=== PATIENT | male | born 1995 | race Two or more races ===

== ENCOUNTER 2022-02-10 10:20 | Outpatient (CLI) | payer OTHER ==
[2022-02-10 11:13] VITALS: BP 128/78
--- NOTE | 2022-02-10 11:13 | SLEEP CARE CONSULTATION ---
Information from patient questionnaire entered by Jaelyn Minor MA. I have reviewed and concur with the information entered by Jaelyn Minor MA. This document represents the service I personally performed and the decisions made by me, Tanisha Guerra ARNP. History of Present Illness Service Date and Time: 02/10/2022 1020 Reason for Visit: New patient (ONSET 10/2020, NO PRIORS, ) Chief Complaint: reports: Insomnia, Unrefreshed sleep, Snoring, Observed pauses in breathing (per mother when younger and currently has noted), Fatigue, Frequent awakenings at night Date of Onset: 1 TO 1.5 YEARS Usual bedtime: 9 -10 PM Time it takes to fall asleep: 15-30 MINUTES Snores at night: Yes Observed to quit breathing while asleep: Yes Sleeps alone due to snoring: Yes (has in past) Number of times waking at night: 5 PLUS Reasons for waking at night: reports: Snoring, Pain, Other (unknown reasons). denies: Choking, Gasping for air Toss, Turn, or Twitch while sleeping: No Recalls having dreams: Yes Usually gets out of bed at: [id number]; dependant on work schedule; weekends until 0900 Feels refreshed in the morning: No Morning headache: No Sleepy or fatigued during the day: Yes Ever fallen asleep while driving: No Takes day naps: Yes (typically on weekends only) Dreams during day naps: Yes Prior sleep studies: No Additional HPI information: I had the pleasure of seeing GARRETT SLATER today regarding the possibility of him having a sleep disorder. His current complaints are insomnia, unrefreshed sleep, snoring, observed pauses in breathing, frequent night awakenings and fatigue. His complains about his snoring because of his snoring. He will also wake himself up snoring. They did sleep apart for a little while but currently are sharing same sleep space. He states it doesn't matter how much sleep he gets he still feels tired. He wakes up feeling tired. He states he has snored for a long time and his mother has told him he used to have pauses in breathing as a youth. His currently has noted pauses in breathing as well. He states his snoring etc has been progressively getting worse over the last year or so. He has a that he gets up to help feed during the night about midnight. - Parasomnia Symptoms Ever been unable to move upon waking from sleep: No Walks in sleep: No Talks in sleep: Yes Ever acted out dreams in sleep: Yes (not often) Ever felt weak in the knees when startled or emotional: No Bothered by creepy, crawly, restless sensations in legs: No Problems with memory or concentration: Yes (more memory issues, forgetting little things all the time) Subjective Initial [place] Sleepiness Scale score: 11 (02/18) Past Medical History Past Medical History: reports: Depression (treated in the past, not currently) Social History The patient's occupation is a [employer]. Patient is and lives in . Have you smoked in the past 12 months: No Alcohol use: Yes Alcohol amount and frequency: 1-3 every 3-6 months Caffeine use: No Family History Family history of sleep disordered breathing: Yes Family Hx Sleep Apnea: Mother: Snoring (UNCLES AND AUNTS), Sibling: Snoring Allergies and Home Medications Known drug allergies: No Drug allergies reviewed: Yes (NKDA) Home medication list reviewed: Yes (no daily medications or supplements) Review of Systems Weight gain over past 5 years: 73 lbs Cardiovascular: denies: high blood pressure Gastrointestinal: denies: heartburn Neurological: denies: headaches Ear/Nose/Throat: reports: dry mouth/throat (usually dry in the mornings; mouth breather), wisdom teeth removed. denies: tonsillectomy Endocrine: reports: sluggishness. denies: thyroid disease Immunologic: denies: allergies to food or environment Physical Exam Vital signs obtained and entered by: Mila MINOR CMA AALA Blood Pressure: 128/78 (RIGHT, PULSE 73, RESP 18, ) Heart Rate: 74 O2 Saturation: 96 (PAPER) Height: 5 ft 7 in Weight: 255 lb Body Mass Index: 39.9 BMI Classification: Obese Neck circumference: 17.5 (INCHES) Mouth and throat: narrow oropharynx Soft palate: long Hard palate: normal Uvula: normal Uvula visualization: 100% Mallampati Class I Tongue: enlarged in size with teeth moeller on lateral edges Tonsils: 2+ Neck: normal w/o lymphadenopathy or thyromegaly Heart: regular rate and rhythm Lungs: clear bilaterally Impression and Plan 1. Suspected Obstructive Sleep Apnea-Hypopnea Syndrome, as suggested by a history of loud and irregular snoring, observed cessation of breath while asleep, frequent awakening during the night, unrefreshed sleep and cognitive impairment. Narrow oropharynx and obesity are common predisposing factors for obstructive sleep apnea-hypopnea syndrome. I recommend proceeding to polysomnography to confirm the diagnosis and to assess severity. If the patient has significant sleep disordered breathing, a manual CPAP titration study will also be performed to find the optimal treatment pressure. I informed the patient of what the sleep studies involve and after some discussion, obtained agreement to proceed. The pathophysiology of obstructive sleep apnea-hypopnea syndrome was discussed with the patient and health risks of cardiovascular and cerebrovascular disease if not treated. Risks of drowsy driving discussed in detail and patient advised to avoid long distance driving and to extractor puller at the first sign of drowsiness. Patient agreed to plan. * Schedule polysomnography +- manual CPAP titration study and return in 1-2 weeks after the study to discuss results. * Avoid long distance driving or driving when feeling sleepy. * Avoid alcohol, sedative and muscle relaxant around bedtime. * Attempt to lose weight. * Review instructions provided by trained office staff on how to prepare for the sleep study. * Return for follow-up after sleep study completed. Counseling Topics: Weight loss health impact Visit Type: In Office Time Spent with Patient (minutes): 31 Provider Statement: I spent 100% of the Face to Face Visit with the patient with greater than 50% spent counseling the patient and coordination of care.
== END 2022-02-10 10:21 | disposition home or self-care (01) ==
LOC: SC 10:20
PROVIDERS: ATTEND Nurse Practitioner Family
DX: R06.83 Snoring (principal); G47.8 Other sleep disorders; R06.81 Apnea, not elsewhere classified; R41.89 Other symptoms and signs involving cognitive functions and awareness; E66.9 Obesity, unspecified; Z68.39 Body mass index [BMI] 39.0-39.9, adult
CPT/HCPCS: 99203; 99212

== ENCOUNTER 2022-03-08 20:30 | Outpatient (CLI) | payer OTHER | END 2022-03-08 23:59 | disposition home or self-care (01) | LOC: SC 20:30 | PROVIDERS: ATTEND Nurse Practitioner Family | DX: G47.33 Obstructive sleep apnea (adult) (pediatric) (principal) | CPT/HCPCS: 95810 ==

== ENCOUNTER 2022-03-18 14:01 | Outpatient (CLI) | payer OTHER ==
--- NOTE | 2022-03-18 14:48 | SLEEP CARE CONSULTATION ---
Information from patient questionnaire entered by Jaelyn Dominguez MA. I have reviewed and concur with the information entered by Jaelyn Dominguez MA. This document represents the service I personally performed and the decisions made by , Tanisha Guerra ARNP. History of Present Illness Service Date and Time: 03/18/2022 1401 Initial [place] Sleepiness Scale score: 11 (01/2022) Current [place] Sleepiness Scale score: 15 (02/2022) Additional HPI information: GARRETT SLATER returns for follow up and results of the recently performed polysomnography. I explained the pathophysiology behind obstructive sleep apnea. We then spent quite a bit of time discussing different treatment options. For mild obstructive sleep apnea, surgery and oral appliance are alternatives to nasal CPAP therapy but in moderate or severe cases, nasal CPAP is the most effective and reliable treatment. Because apnea is primarily in supine position, then positional management therapy could be effective. Methods discussed such as positioning with pillows, using a T-shirt with tennis balls in the back, and shown commercial products that have a pillow format on back to prevent supine sleep. I reviewed the impact of weight changes on sleep apnea and strongly recommended losing weight. [facility] patient education PAP tips and Non Pap treatment pamphlets reviewed and given to patient. Patient counseled not drink alcohol less than 4 hours before bedtime as it can increase snoring and apnea. Patient was cautioned about risks of drowsy driving until sleepiness symptoms resolve. Sleep Study - Results Type of Sleep Study: Polysomnography (F/U POLY, 03/08/22 [facility],) Prior sleep studies: No Polysomnography/Home Sleep Study results: IMPRESSION: The quality of the study is good. The patient had normal sleep efficiency. The sleep architecture was relatively normal as well considering the first night effect. Respiratory monitoring showed mild obstructive sleep apnea-hypopnea (AHI = 5.3) associated with oxyhemoglobin desaturation and mild hypoxia (rhys oxygen saturation of 85%) but not sleep fragmentation. The respiratory events occurred mainly during REM sleep (supine AHI = 6.4; non-supine = 4.02). Snore was moderate in intensity. There was no significant periodic leg movement of sleep. Cardiac rhythm was normal sinus rhythm without significant arrhythmia. No abnormal behavior (parasomnia) observed during the night. Allergies and Home Medications Known drug allergies: No Drug allergies reviewed: Yes Home medication list reviewed: Yes (no changes) Review of Systems Review of systems same as previous: Yes (no changes) Physical Exam Vital signs obtained and entered by: JOHN SOUZA Blood Pressure: 128/70 Heart Rate: 100 O2 Saturation: 97 (PAPER MASK) Height: 5 ft 7 in Weight: 253 lb (UNIFORM AND BOOTS) Weight change since last visit: LOST LBS, LOW CARBOS, Body Mass Index: 39.6 BMI Classification: Obese Impression and Plan 1. Obstructive Sleep Apnea-Hypopnea Syndrome, mild, with lowest oxygen saturation of 85%. Obviously this is the cause of the patients symptoms of unrefreshed sleep, and excessive daytime sleepiness. Positive pressure therapy could benefit depression. The patient chose an oral appliance to treat their apnea. A 3 month follow up will be made to see if appliance has reduced symptoms. If so, another polysomnography will be ordered with use of the oral appliance to check efficacy in reducing apnea. Until patient is able to use the oral appliance, positional therapy is advised to avoid supine sleep with pillow positioning or one of the commercial products because apnea is more severe prashanthin anu. 2. Hypoxemia, mild, with the lowest oxygen saturation of 85% and 2.1 minutes spent under 89%. His baseline oxygen saturation was normal with an average oxygen saturation of 94%. * Oral appliance * Attempt to lose weight. * Avoid alcohol consumption near bedtime. * Avoid supine sleep * The patient is again cautioned about driving until sleepiness completely resolves. * Return one month after oral appliance obtained. I will assess response to therapy at that time. Counseling Topics: Sleeping position, Weight loss health impact Visit Type: In Office Time Spent with Patient (minutes): 20 Provider Statement: I spent 100% of the Face to Face Visit with the patient with greater than 50% spent counseling the patient and coordination of care.
[2022-03-18 14:51] VITALS: BP 128/70
== END 2022-03-18 14:02 | disposition home or self-care (01) ==
LOC: SC 14:01
PROVIDERS: ATTEND Nurse Practitioner Family
DX: G47.33 Obstructive sleep apnea (adult) (pediatric) (principal); E66.9 Obesity, unspecified; Z68.39 Body mass index [BMI] 39.0-39.9, adult
CPT/HCPCS: 99212; 99213